=== PATIENT | male | born 1975 | race Caucasian/White ===

== ENCOUNTER 2023-05-02 14:36 | Emergency (ER) | payer SELFPAY ==
--- NOTE | ~2023-05-02 | XR_ITS ---
EXAMINATION: XR chest 1V portable Exam Date/Time: 05/02/2023 17:43 DENTAL FRONT OFFICE ASSISTANT HISTORY: chest pain Comparison: None. RESULT: Lines, tubes, and devices: None. Lungs and pleura: Clear. Cardiomediastinal silhouette: Normal. Other: No acute osseous or upper abdominal finding. IMPRESSION: No acute cardiopulmonary process. Reviewed, dictated and finalized at location K. AL FRONT OFFICE ASSISTANT
[2023-05-02 14:43] VITALS: BP 135/79; PULSE 107; RESP 22; TEMP 36.3; O2SAT 100
--- NOTE | 2023-05-02 17:35 | ECG_ITS ---
Measurements Intervals [place] Rate: 88 P: 59 VA: 151 QRS: 73 QRSD: 98 T: 57 QT: 384 QTc: 465 Interpretive Statements SINUS RHYTHM BASELINE ARTIFACT- I, II, AVR NORMAL ECG NO PREVIOUS ECG AVAILABLE FOR COMPARISON Electronically Signed On 05-02-2023 19:20:13 QUALITY CONTROL COORDINATOR by Manoj Mary D.O.
--- NOTE | 2023-05-02 17:49 | ED.ANXIETY ---
HPI - Anxiety General Chief Complaint: Anxiety <Yasmeen Birmingham PA-C - Last Filed: 05/02/23 21:02> Stated Complaint: panic attack <Yasmeen Birmingham PA-C - Last Filed: 05/02/23 21:02> Time Seen by Provider: 05/02/23 17:18 <Yasmeen Birmingham PA-C - Last Filed: 05/02/23 21:02> History of Present Illness HPI narrative: 47-year-old male presents to the emergency department with his girlfriend at bedside for anxiety and methamphetamine use. Patient states he has been on a ?[employer]? for the past 2 days and has been using meth. He says he has been smoking about ?100 hours of ?of meth per day. Pt states she has only done meth a of times in his life and this is her normal presents. States he has had to be seen in the ED uses 2nd anxiety and hallucinations. He is reporting anxious and paranoid thoughts, states he thinks at around was talking to. He is denying he auditory or visual hallucinations, however the girlfriend at bedside states that he thought that other people were and a conversation with them earlier today. Patient denies SI or HI. He denies current chest pain, however does state that he had chest pain while in the waiting room. He does endorse some dyspnea and nausea. Denies fever, abdominal pain, vomiting, myalgias, lower extremity edema. Of note, patient states he has taken a total of 3 sutures of Vicryl between last night and this morning. He last used meth ?early this morning . <Yasmeen Birmingham PA-C - Last Filed: 05/02/23 21:02> Related Data Allergies/Adverse Reactions: Allergies Allergy/AdvReac Type Severity Reaction Status Date / Time No Known Allergies Allergy Verified 05/02/23 17:19 <Yasmeen Birmingham PA-C - Last Filed: 05/02/23 21:02> Review of Systems Review of Systems: CONSTITUTIONAL: Denies fever, chills, or sweats. EYES: Denies visual changes, redness, or discharge. ENT: Denies rhinorrhea, congestion, sore throat, or otalgia. CARDIOVASCULAR: See HPI RESPIRATORY: See HPI GASTROINTESTINAL: Denies abdominal pain, nausea, vomiting, or diarrhea. GENITOURINARY: Denies dysuria or hematuria. SKIN: Denies rash or itching. MUSCULOSKELETAL: Denies back pain, joint pain, or myalgia. NEUROLOGIC: Denies headache, numbness, or weakness. PSYCHIATRIC: See HPI <Yasmeen Birmingham PA-C - Last Filed: 05/02/23 21:02> PMFSH Social History Social History: Social History Substance use type: amphetamines <Yasmene Birmingham PA-C - Last Filed: 05/02/23 21:02> Exam Narrative: GENERAL: well-nourished, and in no acute distress. Patient is Anxious, irritable, psychomotor agitation, diaphoretic HEAD: Normocephalic, atraumatic. EYES: PERRLA and EOMI. ENT: Nares clear, no rhinorrhea or epistaxis. Mucous membranes moist. NECK: Supple. CHEST: Clear to auscultation. No respiratory distress. HEART: Regular rate and rhythm. No murmur heard. Normal peripheral pulses. ABDOMEN: Soft, nontender, nondistended, normal active bowel sounds. EXTREMITIES: Normal range of motion. No edema. SKIN: Warm, no rash. Diaphoretic NEURO: No focal deficits. Alert and oriented x3 PSYCH: No SI or HI. Patient does endorse anxiety and paranoid thoughts. No active hallucinations or delusions. <Yasmeen Birmingham PA-C - Last Filed: 05/02/23 21:02> Course TALENT SPECIALIST/PA Physician Supervision For this patient encounter, I reviewed the TALENT SPECIALIST or PA documentation, treatment plan, and medical decision making and/or I had [id number] time with this patient. I performed all aspects of the MDM as documented. <Katja Trujillo MD - Last Filed: 05/11/23 20:45> Vital Signs Vital signs: Vital Signs Temperature 97.4 F L 05/02/23 14:43 Pulse Rate 107 H 05/02/23 14:43 Respiratory Rate 22 H 05/02/23 14:43 Blood Pressure 135/79 05/02/23 14:43 Pulse Oximetry 100 05/02/23 14:43 Oxygen Delivery Room Air 05/02/23 14:43 Temperature 9
[2023-05-02] MEDS: LORazepam INJ (*CRX) 2 MG/ML VIAL 1 MG IV PUSH (18:05)
[2023-05-02] MEDS: SODIUM CHLORIDE 0.9% IV 1,000 ML 999 ML IV CONT (18:05)
[2023-05-02 18:20] LABS: Basophils Absolute Auto 0.1 K/mm3 (0.0-0.1); Basophils Percent Auto 0.7 % (0.2-1.2); Eosinophils Absolute Auto 0.1 K/mm3 (0-0.3); Eosinophils Percent Auto 0.4 % (0-4.4); Hematocrit 46.5 % (42.0-52.0); Immature Granulocyte Absolute 0.04 K/mm3 (0.00-0.031); Immature Granulocyte Percent A 0.3 % (0-0.5); Lymphocytes Absolute Auto 2.65 K/mm3 (0.9-3.2); Lymphocytes Percent Auto 20.2 % (18.3-44.2); Mean Corpuscular HGB Conc 34.4 g/dl (32-36); Mean Corpuscular Volume 87.2 fl (80-100); Mean Platelet Volume 11.2 fl (7.4-10.4); Monocytes Absolute Auto 1.2 K/mm3 (0.1-0.6); Monocytes Percent Auto 8.8 % (2.6-8.5); Neutrophils Absolute Auto 9.1 K/mm3 (1.3-6.7); Neutrophils Percent Auto 69.6 % (45.5-73.1); Platelet Count Result 329 k/mm3 (150-375); Red Blood Count 5.33 M/mm3 (4.6-6.20); Red Cell Distribution Width 12.6 % (11.5-14.5); White Blood Count 13.1 K/mm3 (4.5-10.0)
[2023-05-02 18:30] LABS: Alanine Aminotransferase 40 U/L (6-50); Albumin Level 4.8 g/dL (3.5-5.1); Alkaline Phosphatase 79 U/L (38-126); Anion Gap 15 mmol/L (8-16); Aspartate Amino Transferase 42 U/L (17-59); Bilirubin,Total 1.1 mg/dL (0.2-1.3); Blood Urea Nitrogen 15 mg/dL (9-20); Calcium 9.7 mg/dL (8.4-10.2); Carbon Dioxide 18 mmol/L (22-30); Chloride 106 mmol/L (98-107); Estimated CRCL calculation 114 ml/min; Estimated Glomerular Filt Rate > 60; Glucose 95 mg/dL (65-110); Potassium 3.7 mmol/L (3.4-5.0); Sodium 139 mmol/L (137-145)
[2023-05-02 18:31] LABS: Ethanol < 10 mg/dL (<10)
[2023-05-02 18:32] LABS: Lipase 63 U/L (23-300)
[2023-05-02 18:37] LABS: Appearance Urine Clear (Clear); Bacteria Urine None Seen /hpf; Bilirubin Urine Negative (Negative); Blood Urine Negative (Negative); Color Urine Dark Yellow (Yellow); Glucose Urine UA Negative (Negative); Ketones Urine 1+ mg/dL (Negative); Leukocyte Esterase Ur Negative LEU/UL (Negative); Need Manual Microscopic Reviewed; Nitrate Urine Negative (Negative); Non Pathogenic Casts 0-2; Protein Urine 1+ mg/dL (Negative); RBC Urine 0-2 /hpf (0-2); Squamous Epithelial Cell Urine None seen /hpf (Few); WBC Urine 0-5 /hpf; pH Urine 5.5 (5.0-9.0)
[2023-05-02 18:38] LABS: Add Urine Microscopic? YES; Specific Grav Ur 1.036 (1.001-1.035)
[2023-05-02 18:41] LABS: Troponin I < 0.012 ng/mL (0.000-0.034)
[2023-05-02 18:44] LABS: Barbiturate Screen Urine Negative (Negative); Benzodiazepines Screen Urine Negative (Negative)
[2023-05-02 19:02] LABS: Cannabinoid Screen Urine Negative (Negative); Cocaine Screen Urine Negative (Negative); Methadone Screen Urine Negative (Negative); Opiate Screen Urine Negative (Negative); Phencyclidine Screen Urine Negative (Negative)
[2023-05-02 19:21] VITALS: BP 131/79
[2023-05-02 19:26] LABS: Amphetamine Screen Urine Positive (Negative)
[2023-05-02 19:32] VITALS: BP 129/89
[2023-05-02 19:33] VITALS: BP 143/82
[2023-05-02 21:01] VITALS: BP 134/76; PULSE 90
[2023-05-02 21:41] VITALS: BP 131/87; PULSE 84; RESP 15; O2SAT 98
== END 2023-05-02 21:45 | disposition home or self-care (01) ==
PROVIDERS: Emergency Provider Physician Assistant
DX: F15.90 Other stimulant use, unspecified, uncomplicated (principal); F41.9 Anxiety disorder, unspecified
CPT/HCPCS: 36415; 71045; 80053; 80307; 81001; 83690; 84484; 85025; 93005; 96374; 99284; J2060; J7030

== ENCOUNTER 2023-12-16 10:53 | Emergency (ER) | payer OTHER, SELFPAY ==
[2023-12-16 11:29] VITALS: BP 129/89; PULSE 80; RESP 18; TEMP 36.9; O2SAT 96
[2023-12-16] MEDS: TETANUS,DIPHTHERIA,AC PERTUSSIS ADULT (0.5 ML) BOOSTRIX IM (11:43)
--- NOTE | 2023-12-16 12:25 | ED.WOUNDLAC ---
HPI - Wound/Laceration General Chief Complaint: Wound/Laceration Stated Complaint: left hand lac Time Seen by Provider: 12/16/23 11:39 Source: patient, RN notes reviewed and old records reviewed Mode of arrival: ambulatory Limitations: no limitations History of Present Illness HPI narrative: 48-year-old male presents to [facility] with complaints laceration to the dorsal aspect of his left hand across the 3rd MCP joint area which he cut on a piece of metal within past 40 minutes prior to arrival. Patient has 2 cm linear laceration noted with no acute bleeding noted at this time. Patient reports that his tetanus shot is not up to date. He is left hand dominant. Onset (ago): minute(s) (within past 40 minutes) Location: other (left dorsal hand over 3rd MCP joint) Extremity Location: Left: hand (dorsal over 3rd MCP joint) Place: work Patient tetanus UTD: No Treatments prior to arrival: bandage Related Data Allergies Allergy/AdvReac Type Severity Reaction Status Date / Time No Known Allergies Allergy Verified 12/16/23 11:28 Review of Systems Review of Systems: CONSTITUTIONAL: Denies fever, chills, or sweats. CARDIOVASCULAR: Denies chest pain, palpitations, or edema. RESPIRATORY: Denies cough or dyspnea. SKIN: Reports laceration to his left hand over the middle finger MCP joint region, bleeding controlled. MUSCULOSKELETAL: Denies musculoskeletal pain NEUROLOGIC: Denies numbness, or weakness. All systems reviewed & are unremarkable except as noted in HPI and below PMFSH Past Medical History Medical History (Updated 12/18/23 @ 10:06 by Kellie Howe NP) Medical history non-contributory Surgical History Surgical History (Updated 12/18/23 @ 09:57 by Kellie Howe NP) No significant past surgical history Social History Social History (Updated 12/18/23 @ 09:56 by Kellie Howe NP) Smoking packs per day: 1 Smoking cigarettes per day: 20.0 Smoking status: Current every day smoker Tobacco type: cigarettes Alcohol intake: former Substance use: former Substance use type: amphetamines Comments At time of signature, agree with nursing past medical, surgical, social and family history. There is no relevant family history pertinent to the presenting complaint Exam Narrative: GENERAL: Well-appearing, well-nourished, and in no acute distress. HEAD: Normocephalic, atraumatic. NECK: Supple.no lymphadenopathy CHEST: Clear to auscultation. No respiratory distress. HEART: Regular rate and rhythm. No murmur heard. Normal peripheral pulses. EXTREMITIES: Normal range of motion. No edema. SKIN: Warm, dry, no rash. Reports 2 cm laceration over dorsal 3rd MCP joint of left hand from sheet metal linear with bleeding controlled.see procedure note NEURO: No focal deficits. Alert and oriented x3. Course Course Level of Care: Express Care Visit Vital Signs Vital signs: Vital Signs Temperature 36.9 C 12/16/23 11:29 Pulse Rate 80 12/16/23 11:29 Respiratory Rate 18 12/16/23 11:29 Blood Pressure 129/89 12/16/23 11:29 Pulse Oximetry 96 12/16/23 11:29 Oxygen Delivery Room Air 12/16/23 11:29 Temperature 36.9 C 12/16/23 11:29 Pulse Rate 80 12/16/23 11:29 Respiratory Rate 18 12/16/23 11:29 Blood Pressure 129/89 12/16/23 11:29 Pulse Oximetry 96 12/16/23 11:29 Oxygen Delivery Room Air 12/16/23 11:29 Procedures Laceration hand: Date: 12/16/23 Time: 11:55 Site: hand Side (If applicable): left Size (cm): 2 Description: linear Depth: simple, single layer Local Anesthetic: lidocaine 1% Amount of anesthesia used (mL): 4 Pre-repair: wound explored, irrigated, irrigated extensively and other (cleansed with wound cleanser) ====== Skin Level ====== Skin layer closed with: nylon Size (cm): 4-0 Number of sutures: 6 Technique: simple, interrupted ====== Subcut
== END 2023-12-16 12:50 | disposition home or self-care (01) ==
PROVIDERS: Emergency Provider Registered Nurse
DX: S61.412A Laceration without foreign body of left hand, initial encounter (principal); W45.8XXA Other foreign body or object entering through skin, initial encounter; Z23 Encounter for immunization; F17.210 Nicotine dependence, cigarettes, uncomplicated
CPT/HCPCS: 12001; 90471; 90715; 99213; G0463